=== PATIENT | female | born 1995 | race Caucasian/White ===

== ENCOUNTER 2020-07-24 19:56 | Emergency (ER) | payer OTHER ==
[~2020-07-24] VITALS: Ht 157.5 cm; Wt 54.5 kg
--- NOTE | 2020-07-24 20:39 | PHYS DOC ---
General Adult EDM: Chief Complaint: DENTAL PROBLEM HPI: HPI: Patient is a 24 year old female who presents with above hx and complaints of dental pain and facial celllulitis form dental abscess . Review of Systems: Review of Systems: Constitutional: Denies fever or chills Eyes: Denies change in visual acuity HENT: Denies nasal congestion or sore throat Respiratory: Denies cough or shortness of breath Cardiovascular: Denies chest pain or edema GI: Denies abdominal pain, nausea, vomiting, bloody stools or diarrhea : Denies dysuria Musculoskeletal: Denies back pain or joint pain Integument: Denies rash Neurologic: Denies headache, focal weakness or sensory changes Endocrine: Denies polyuria or polydipsia Lymphatic: Denies swollen glands Psychiatric: Denies depression or anxiety Physical Exam: PE: Constitutional: Well developed, well nourished, no acute distress, non-toxic appearance. [] HENT: Normocephalic, atraumatic, bilateral external ears normal, oropharynx moist, no oral exudates, nose normal. [] Eyes: PERRLA, EOMI, conjunctiva normal, no discharge. [] Neck: Normal range of motion, no tenderness, supple, no stridor. [] Cardiovascular:Heart rate regular rhythm, no murmur [] Lungs & Thorax: Bilateral breath sounds clear to auscultation [] Abdomen: Bowel sounds normal, soft, no tenderness, no masses, no pulsatile masses. [] Skin: Warm, dry, no erythema, no rash. [] Back: No tenderness, no CVA tenderness. [] Extremities: No tenderness, no cyanosis, no clubbing, ROM intact, no edema. [] Neurologic: Alert and oriented X 3, normal motor function, normal sensory function, no focal deficits noted. [] Psychologic: Affect normal, judgement normal, mood normal. [] EKG: EKG: [] Radiology/Procedures: Radiology/Procedures: [] Heart Score: Risk Factors: Risk Factors: DM, Current or recent (<one month) smoker, HTN, HLP, family history of CAD, obesity. Risk Scores: Score 0 - 3: 2.5% MACE over next 6 weeks - Discharge Home Score 4 - 6: 20.3% MACE over next 6 weeks - Admit for Clinical Observation Score 7 - 10: 72.7% MACE over next 6 weeks - Early Invasive Strategies Course & Med Decision Making: Course & Med Decision Making Pertinent Labs and Imaging studies reviewed. (See chart for details) [] Shu Disclaimer: Dragon Disclaimer: This electronic medical record was generated, in whole or in part, using a voice recognition dictation system. Departure Departure: Referrals: JOSE ELAINE MD (PCP) CLAUDE CHEEK MD Jul 24, 2020 20:39
[2020-07-24 21:00] VITALS: BP 114/79
[2020-07-24] MEDS ORDERED: HYDROcodon/IBUPROFEN 7.5/200MG 1 TAB TABLET PO ONE (21:00)
[2020-07-24] MEDS ORDERED: cefTRIAXone IM 1 GM VIAL IM ONE (21:00)
[2020-07-24] MEDS ORDERED: CEPH750C9 PO (21:03)
[2020-07-24] MEDS ORDERED: cefTRIAXone SODIUM 1 GM VIAL ONE (21:09)
== END 2020-07-24 21:59 | disposition home or self-care (01) ==
LOC: ER 19:56
DX: L03.211 Cellulitis of face (principal); K08.89 Other specified disorders of teeth and supporting structures
CPT/HCPCS: 96372; 99283; J0696

== ENCOUNTER 2021-02-26 16:55 | Emergency (ER) | payer OTHER ==
[~2021-02-26 16:55] MED LIST: CEPH750C9 PO
== END 2021-02-26 19:56 | disposition left against medical advice (07) ==
LOC: ER 16:55
DX: K04.7 Periapical abscess without sinus (principal); Z53.21 Procedure and treatment not carried out due to patient leaving prior to being seen by health care provider